=== PATIENT | female | born 1960 | race Caucasian/White ===

== ENCOUNTER 2020-09-21 11:09 | Inpatient (IN) ==
[2020-09-21] MEDS ORDERED: ASPIRIN CHEW 324 MG PO STA (11:58)
[2020-09-21] MEDS ORDERED: NITROGLYCERIN 2% OINTMENT 30GM TUBE EXT STA (11:58)
[2020-09-21] MEDS ORDERED: FAMOTIDINE 20MG/5ML IV PUSH IV STA (12:01)
[2020-09-21 12:22] LABS: Basophils # (auto) 0.05 K/uL (0-0.2); Basophils % (auto) 0.5 %; Eosinophils # (auto) 0.12 K/uL (0-0.5); Eosinophils % (auto) 1.3 %; Hematocrit (blood only) 44.6 % (37-47); Hemoglobin 15.2 g/dL (12.0-16.0); Immature Granulocytes % (auto) 1.1 %; Lymphocytes # (auto) 2.56 K/uL (1.2-3.4); Lymphocytes % (auto) 27.4 %; Mean Corpuscular Hemoglobin 30.2 pg (25-34); Mean Corpuscular Hgb Conc 34.1 g/dL (32-36); Mean Corpuscular Volume 88.5 fL (80-100); Mean Platelet Volume 10.5 fL (7.4-10.4); Monocytes % (auto) 6.4 %; Neutrophils # (auto) 5.92 K/uL (1.4-6.5); Neutrophils % (auto) 63.3 %; Platelet Count 408 K/uL (130-400); RDW Coefficient of Variation 13.9 % (11.5-14.5); RDW Standard Deviation 45.2 fL (36.4-46.3); Red Blood Count 5.04 M/uL (4.2-5.4); White Blood Count 9.35 K/uL (4.8-10.8)
--- NOTE | 2020-09-21 12:24 | XRay Report ---
XR chest 1V portable CLINICAL HISTORY: Atypical chest pain. COMPARISON STUDY: No previous studies for comparison. FINDINGS: Lung volumes are normal. Lungs are clear. There is no pneumothorax or pleural effusion. Car diac size is normal. Mediastinal contours are normal. There is no evidence for pulmonary edema. There is evidence for a probable distal right clavicular resection. IMPRESSION: No acute cardiopulmonary findings. ACT 112: Negative or not required by law. Electronically signed by: Himanshu Jacobo M.D. 09/21/2020 12:23 PM
[2020-09-21 13:00] LABS: Albumin Level 3.4 gm/dl (3.4-5.0); BUN Creatinine Ratio 18.2 (10-20); Creatinine Clr Calc Pharmacy 76.2 ml/min; Est GFR (African American) 103.5; Est GFR (Non-African American) 89.3; Potassium 3.9 mmol/L (3.5-5.1)
[2020-09-21 13:08] LABS: Albumin Globulin Ratio 0.9 (0.9-2); Bilirubin,Total 0.4 mg/dl (0.2-1); Globulin 3.8 gm/dl (2.5-4.0); Total Protein 7.2 gm/dl (6.4-8.2); Troponin I 0.321 ng/ml (0-0.045)
[2020-09-21] MEDS ORDERED: Heparin IV Low Dose WITH Bolus IV STA (13:09)
[2020-09-21] MEDS ORDERED: HEPARIN SODIUM/DEXTROSE 25,000 UNITS/500 ML BAG IV SCH (13:15)
[2020-09-21] MEDS ORDERED: HEPARIN SOD (PORCINE) 1000 UNIT/ML 10 ML VIAL ONE (13:22)
[2020-09-21] MEDS ORDERED: Heparin BOLUS **ED Use Only IV STA (13:27)
--- NOTE | 2020-09-21 14:35 | Electrocardiogram Report ---
Test Reason : Blood Pressure : / mmHG Vent. Rate : 061 BPM Atrial Rate : 061 BPM P-R Int : 146 ms QRS Dur : 080 ms QT Int : 430 ms P-R-T Axes : 061 -58 199 degrees QTc Int : 432 ms Poor data quality, interpretation may be adversely affected Sinus rhythm with occasional Premature ventricular complexes Left anterior fascicular block Abnormal ECG No previous ECGs available Confirmed by Lucian Desai ([id number]) on 09/21/2020 2:35:15 PM Referred By: REFERRED SELF Confirmed By:Lucian Desai
[2020-09-21] MEDS ORDERED: NITROGLYCERIN/D5W 100MCG/ML 20ML SYR ONE (14:53)
[2020-09-21] MEDS ORDERED: fentaNYL citrate 100 MCG/2 ML VIAL ONE ×2 (14:53→17:22)
[2020-09-21] MEDS ORDERED: HEPARIN (PORCINE) 1000 UNIT/ML 10 ML (CATH LAB USE ONLY) ONE (14:53)
[2020-09-21] MEDS ORDERED: MIDAZOLAM HCL 1 MG/ML 2ML VIAL ONE ×2 (14:53→15:53)
[2020-09-21] MEDS ORDERED: niCARdipine HCL INJ 2.5 MG/ML 10 ML AMP ONE (14:53)
--- NOTE | 2020-09-21 15:13 | History & Physical Report ---
Date of Service September 21, 2020 Assessment & Plan (1) NSTEMI, initial episode of care: Mrs. Horner is a 60-year-old female with a history of Tobacco Use x 42 years (up to 2 ppd, now smokes 1/2 ppd), presumed Dyslipidemia, and Elevated BP (without diagnosis of hypertension) who presents acutely to [facility] ER today with Unstable Angina Pectoris, Ischemic EKG Changes, and an Elevated Troponin I Level -- which likely represent an NSTEMI. Patient was in her usual state of health when she had the onset angina -- it occurred on Sunday, she was moving [employer] -- and after she moved 7 or 8 hay mely she had severe chest burning from her lower anterior chest up into the suprasternal notch which caused her to stop the activity. She sat down and rested, and the discomfort lasted for about 5-10 minutes. This occurred again on Sunday when she was shoveling out her horse stalls. Again, she sat down and rested and the pain lasted for 5-10 minutes. Overnight on Sunday night into Sunday morning while sleeping she had another episode of burning chest pain that woke her from sleep and lasted about 10 minutes. This morning she had some mild chest discomfort while taking a shower and when trying to get her [employer] to come in out of the snow. She has not had any prolonged episodes of burning chest discomfort, and she only had that 1 episode that occurred at rest. At the present time, she denies any further chest discomfort. She has a heparin drip running, and topical nitroglycerin in place. She has also taken Aspirin 325 mg in the ER. Recommend the following: -- Cardiac Catheterization/Coronary Angiography +/- PCI. -- Admit to a Telemetry bed following cardiac catheterization. -- Begin Metoprolol Succinate ER 50 mg daily. -- Begin Atorvastatin 80 mg daily. -- Begin Aspirin 81 mg daily. -- Begin Brilinta 90 mg b.i.d.. -- Consider starting an ACEI or ARB if BP allows. -- Obtain Echocardiogram. -- Mediterranean Diet. -- Strongly encouraged smoking cessation. -- She declines a nicotine patch. (2) CAD (coronary artery disease): -- Cardiac Catheterization/Coronary Angiography is being done in the near future. -- Dr. Holloway met with the patient, discussed various options, and acquired informed consent to proceed with cardiac catheterization. -- Management as outlined above. (3) Dyslipidemia: -- Begin high intensity statin therapy. -- Atorvastatin 80 mg daily. -- Recommend a Mediterranean diet. (4) Elevated BP without diagnosis of hypertension: -- Monitor BP throughout hospitalization. -- Begin Metoprolol Succinate ER 50 mg daily. -- Consider starting an ACEI or ARB. -- Stop smoking. (5) Tobacco use: -- Strongly encouraged smoking cessation. History of Present Illness Chief Complaint: -- Unstable Angina /NSTEMI. -- Burning Chest Pain. Primary Care Provider: Yanelis Urias Mrs. Horner is a 60-year-old female with a history of Tobacco Use x 42 years (up to 2 ppd, now smokes 1/2 ppd), presumed Dyslipidemia, and Elevated BP (without diagnosis of hypertension) who presents acutely to [facility] today complaining of Burning Chest Pain which goes from her lower anterior chest up to her suprasternal notch, Ischemic EKG Changes, and an Elevated Troponin I Level. Patient was in her usual state of health. On Sunday, she was moving hay mely -- and after she moved 7 or 8 hay mely she had severe chest burning as described above, she sat down and rested, and the discomfort lasted for about 5- 10 minutes. This occurred again on Sunday when she was shoveling out her horse stalls. Again, she sat down and rested and the pain lasted for 5-10 minutes. Over night on Sunday night into Sunday morning while sleeping she had another episode of burning chest pain that woke her from sleep and lasted about 10 minutes. This morning she had some mild chest discomfort while taking a shower and when trying to get her [employer] to come in out of the snow. She has not had any prolonged episodes of burning chest discomfort, and she only had that 1 episode that occurred at rest. She denies any radiation of the discomfort. She denies any associated symptoms. She specifically denies any associated nausea, vomiting, diaphoresis, or dyspnea. She does get hot flashes related to menopause, but these are unassociated with this chest discomfort. Allergies Allergy/AdvReac Type Severity Reaction Status Date / Time bee venom protein (honey bee) Allergy Unknown Unknown Unverified 09/21/20 13:00 codeine Allergy Unknown Unknown Unverified 09/21/20 13:00 Home Medications Medication Instructions Recorded Confirmed Type aspirin-caffeine [Benny Back and 1 tab PO UD 09/21/20 09/21/20 History Body] Past Med/Surg History Medical History (Updated 09/21/20 @ 18:08 by Nicole Delong MD) COPD (chronic obstructive pulmonary disease) Family History (Updated 09/21/20 @ 15:05 by Christopher Miguel PA-C) Other Dyslipidemia FH: CABG (coronary artery bypass surgery) Heart disease Hypertension Social History (Updated 09/21/20 @ 15:07 by Christopher Miguel PA-C) Smoking Status: Current every day smoker Tobacco Type: Cigarettes Age Started Using Tobacco: 18; Years Smoked: 42; Cigarettes Per Day: 10; Hx Alcohol Use: No Hx Substance Use: No Preferred Language: Amharic Communication Ability: Effective Visual Impairment: No Limitations Hearing Ability: Normal Supervisor [place] House Required: No Beliefs That Will Affect Care: None marital status: Current Living Situation: Spouse current occupational status: employed current occupation: Owns a [employer] Other Information That Helps Us Care for You: No Feels Safe at Home: Yes Safety Concerns: Feels Safe At This Time caffeine: Yes Physical Activity Frequency: Daily 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, manual labor Assistive Devices: Glasses Review of Systems Review of Systems: All systems reviewed & are unremarkable except as noted in Subjective Physical Exam Physical Exam: GENERAL: Patient in no acute distress. HEENT: Head is atraumatic, normocephalic. EOM's intact. Facies symmetric. No perioral cyanosis. NECK: No JVD. JVP is at the level of the clavicle sitting upright. Carotid upstrokes are + 2 bilaterally. No bruits are noted. CHEST/LUNGS: Harsh breath sounds, otherwise clear. No wheezes, rales, or crackles. CVS: S1 and S2 are regular without obvious murmurs, gallops, or rubs. PMI is nondisplaced. No lifts, heaves, or thrills. No abdominal aortic or renal bruits. ABDOMINAL EXAM: Bowel sounds are present. No masses, organomegaly, or tenderness. EXTREMITIES: No clubbing or cyanosis. No edema. Intact posterior tibial and radial pulses bilaterally. Milton's test of the right wrist is positive for both radial and ulnar arterial reflow. NEUROLOGIC EXAM: Patient is awake, alert, and oriented. Pleasant and cooperative. Answers questions appropriately. Speech is clear. Normal movement in all 4 extremities. Gait pattern was not assessed. EKG 09/21/2020: -- NSR at 61 bpm with LAFB. -- ST and marked T wave abnormality consider anterolateral ischemia. -- No prior tracings available for comparison. MILIEU COORDINATOR: -- NSR. CARDIAC CATHETERIZATION is going to happen in the very near future. Results & Data Results & Data ([facility]) Vital Signs (Past 12 Hours) Vital Signs Temp Pulse Resp BP Pulse Ox 09/21/20 13:00 56 L 17 144/86 H 97 09/21/20 12:51 65 15 169/81 H 97 09/21/20 12:11 59 L 12 173/90 H 97 09/21/20 11:40 70 19 172/98 H 100 09/21/20 11:19 36.7 C 62 16 185/88 H 100 Laboratory Results Laboratory Results - last 24 hr 09/21/20 09/21/20 09/21/20 11:25 12:24 14:10 WBC 9.35 RBC 5.04 Hgb 15.2 Hct 44.6 MCV 88.5 MCH 30.2 MCHC 34.1 RDW Std Deviation 45.2 RDW Coeff of Manuel 13.9 Plt Count 408 H MPV 10.5 H Immature Gran % (Auto) 1.1 Neut % (Auto) 63.3 Lymph % (Auto) 27.4 [place] % (Auto) 6.4 Eos % (Auto) 1.3 Baso % (Auto) 0.5 Neut # (Auto) 5.92 Lymph # (Auto) 2.56 [place] # (Auto) 0.60 H Eos # (Auto) 0.12 Baso # (Auto) 0.05 Immature Gran # (Auto) 0.10 H Sodium 140 Potassium 3.9 Chloride 110 H Carbon Dioxide 23 Anion Gap 7.0 BUN 13 Creatinine 0.74 Est Cr Clr Drug Dosing 76.2 Est GFR ( Amer) 103.5 Est GFR (Non-Af Amer) 89.3 BUN/Creatinine Ratio 18.2 Glucose 93 Calcium 9.0 Total Bilirubin 0.4 AST 10 L ALT 20 Alkaline Phosphatase 72 Troponin I 0.321 H* Total Protein 7.2 Albumin 3.4 Globulin 3.8 Albumin/Globulin Ratio 0.9 Lipase 107 COVID-19 [facility] SARS-CoV-2, RNA, NAAT 09/21/20 14:10 WBC RBC Hgb Hct MCV MCH MCHC RDW Std Deviation RDW Coeff of Manuel Plt Count MPV Immature Gran % (Auto) Neut % (Auto) Lymph % (Auto) [place] % (Auto) Eos % (Auto) Baso % (Auto) Neut # (Auto) Lymph # (Auto) [place] # (Auto) Eos # (Auto) Baso # (Auto) Immature Gran # (Auto) Sodium Potassium Chloride Carbon Dioxide Anion Gap BUN Creatinine Est Cr Clr Drug Dosing Est GFR ( Amer) Est GFR (Non-Af Amer) BUN/Creatinine Ratio Glucose Calcium Total Bilirubin AST ALT Alkaline Phosphatase Troponin I Total Protein Albumin Globulin Albumin/Globulin Ratio Lipase COVID-19 Eval Order SARS-CoV-2, RNA, NAAT NEGATIVE Diagnostic Findings CXR 09/21/2020: -- Lung volumes are normal. Lungs are clear. -- There is no pneumothorax or pleural effusion. -- Cardiac size is normal. Mediastinal contours are normal. -- There is no evidence for pulmonary edema. -- There is evidence for a probable distal right clavicular resection. IMPRESSION: No acute cardiopulmonary findings. Medications Administered Heparin Sodium/Dextrose (Heparin Sodium/Dextrose) 25,000 units in 500 mls @ 14 mls/hr IV .Q24H [facility]; Protocol Stop: 10/21/20 13:14 Last Admin: 09/21/20 13:28 Dose: 700 units/hr, 14 mls/hr Documented by: [id number] Cosigned by: [id number] Discontinued Medications Aspirin (Aspirin Chew 324 Mg) 324 mg PO NOW STA Stop: 09/21/20 11:59 Last Admin: 09/21/20 12:12 Dose: Not Given Documented by: [id number] Famotidine (Famotidine 20mg/5ml Iv Push) 20 mg IV ONE STA Stop: 09/21/20 12:02 Last Admin: 09/21/20 12:10 Dose: 20 mg Documented by: [id number] Heparin Sodium (Porcine) (Heparin Sod (Porcine) 1000 Unit/Ml 10 Ml Vial) Confirm Administered Dose 10,000 units .ROUTE .STK-MED ONE Stop: 09/21/20 13:23 Last Admin: 09/21/20 13:28 Dose: 3,000 units Documented by: [id number] Cosigned by: [id number] Heparin Sodium (Porcine) (Heparin Bolus Ed Use Only) 3,000 units IV NOW STA Stop: 09/21/20 13:28 Last Admin: 09/21/20 13:30 Dose: Not Given Documented by: [id number] Nitroglycerin (Nitroglycerin 2% Ointment 30gm Tube) 1 inch EXT NOW STA Stop: 09/21/20 11:59 Last Admin: 09/21/20 12:10 Dose: 1 inch Documented by: [id number] ECG Indication: chest pain Rate (beats per minute): 61 Rhythm: normal sinus Findings: + ST depression (V3 V4) and + T-wave inversion (Deep V3-V5) Comparison ECG Date: no prior available Code Status & VTE Plan Code Status Full Code VTE Prophylaxis Plan VTE Prophylaxis will be ordered: Yes Supervising Physician Co-Signing Physician Notes I personally saw and examined the patient. I verified all wright points and agree with MARI Miguel with the following exceptions and/or additions: 60-year-old female presents to the emergency room with chest pain. No prior significant medical history. Significant smoking history approximately 80 pack years. Initial chest pain on exertion 3 days ago. Increasing in frequency and severity and occurring at rest for the past 2 days. Currently chest pain-free in the emergency room after nitroglycerin paste, aspirin given and heparin drip started. O/E HS1+2, no murmurs, Chest CTAB, Abdo SNT, BS +ve A/P NSTEMI - elevated troponin, EKG with T wave inversions anterolaterally. aspirin and heparin started in ER. Continue on nitro patch pending cardiac cath planned for later today. Dr. Holloway (cardiology) at bedside when seen. Hypertension - metoprolol tartrate rather than succinate as stated above. Likely need for ACEi post cardiac cath. Tobacco use -declines nicotine replacement products at this time. Smoking sherrill sation PG Care Time/CCT Total # of Minutes Spent Total Time Spent with Patient: Total time spent is greater than 50% in coordination of care (as documented) at patient's floor/unit and/or counseling patient:50 Coding Level of Care Code 99253 Initial Inpt Care Lvl 3 Diagnoses NSTEMI, initial episode of care I21.4 CAD (coronary artery disease) I25.10 Dyslipidemia E78.5 Elevated BP without diagnosis of hypertension R03.0 Tobacco use Z72.0 Time Spent (min) 75
[2020-09-21] MEDS ORDERED: hydrALAZINE HCL 20 MG/ML VIAL ONE (16:47)
[2020-09-21] MEDS ORDERED: TICAGRELOR 90 MG TAB PO ONE (16:50)
[2020-09-21] MEDS ORDERED: NITROGLYCERIN SL 0.4 MG/TAB TAB ONE (17:22)
--- NOTE | 2020-09-21 17:26 | Post Anesthesia Assessment ---
Date of Service September 21, 2020 Post Sedation Assessment Vital Signs Temp Pulse Resp BP Pulse Ox 09/21/20 13:00 56 L 17 144/86 H 97 09/21/20 12:51 65 15 169/81 H 97 09/21/20 12:11 59 L 12 173/90 H 97 09/21/20 11:40 70 19 172/98 H 100 09/21/20 11:19 98.1 F 62 16 185/88 H 100 Recovery Score Activity: Moves 4 extremities Respiration: Deep Breath/Cough Circulation: +/-20% PreAnes Value Consciousness: Fully Awake Oxygen Saturation: O2 needed for >90% Discharge Sedation Level of Care: Fast Track Phase II Post Sedation Plan On clinical assessment, the patient appears to have tolerated the sedation without complications. Patient is recovering as anticipated. Patient will continue to be monitored by nursing and may be discharged when sedation discharge criteria are met per below protocol. Upon Completions of procedure up to 15 minutes continue every 5 minute vital signs and the P.A.R. score; then discharge to a Phase I or Fast Track to Phase II per the following guidelines: * Discharge Patient to appropriate Phase II area if PAR is 8 or greater or return to pre- procedure baseline. The post - procedure orders will be as directed. * If PAR score is less than 8 or not return to pre-procedure baseline then patient will follow Phase I monitoring till PAR is reached for Phase II. The Phase I may be done in procedure room or may call to secure a Phase I area. * If naloxone or flumazenil are used for reversal, hold in Phase I for continued monitoring from when last reversal dose was given for a minimum of 60 minutes or longer pending the nurse and/or physician discretion of patient condition before discharge to Phase II. Please call the Sedation Physician to re-evaluate and complete post-note for discharge to Phase II area. Do NOT discharge from procedure sedation or Phase 1 until post- sedation evaluation note is complete by procedure /sedation MD Sedation Discharge Instructions to be given to the patient at discharge to home.
--- NOTE | 2020-09-21 17:41 | Cardiac Catheterization ---
[facility] Data: Fiberglass Quality Technician Cardiac Status Clinical evaluation leading to the procedure CAD Presenation: Non STEMI Anginal Classification: CCS IV Heart Failure: No Cardiogenic Shock within 24 Hours: No Cardiac Arrest within 24 Hours: No Imaging Studies Past 6 Months: No Stress Studies Past 6 Months: No Diagnostic Physicians Name: Efren Holloway MD Status: Elective Closure Device Percutaneous Entry Location: Radial Closure Device: Radial Band Recommendations: PCI without planned CABG PCI Indication: PCI for high risk Non-SANA Lesion Segment Name: Mid LAD Culprit Artery: Yes Stenosis Prior to Rx (%): 90 Chronic Total Occlusion: No IVUS: Yes FFR: No Pre-Procedure ABDIAS Flow: 3 Previously Treated Lesion: No Lesion Complexity: High/C Lesion Length (mm): 25 Thrombus Present: Yes Bifurcation Lesion: Yes Guidewire Across Lesion: Stenosis Post-Procedure (%): 0 Post-Procedure ABDIAS Flow: 3 Devices(s) Deployed: Yes Yes Intraprocedure Events Significant Disection: No Perforation: No Cardiac Cath Procedure Full Procedure Date September 21, 2020 Pre-Procedure Diagnosis Pre-Procedure Diagnosis: Non STEMI AUC Score AUC Score: 8 Post-Procedure Diagnosis Post-Procedure Diagnosis: Severe CAD, Successful PCI and Normal Intracardiac Pressures Procedure(s) Performed Procedure(s) Performed: Coronary Angiography, Left Heart Cath, Drug Eluting Stent and IVUS Currency Exchange Specialist Efren Holloway MD Field Assembly Supervisor(s) Sj Estimated Blood Loss Estimated Blood Loss: 15 Medication(s) Medication(s): Fentanyl, Heparin, Lidocaine 1%, Nicardipine, Nitroglycerin and Versed Medication(s): Ticagrelor Summary of Findings Indication: STEMI/Heart Alert Access: 6 Fr right radial artery Catheters: DENAE AndresU 3.5 guide Findings: LM -large caliber, no significant disease LAD -large caliber, proximal luminal irregularities, diffuse mid segment disease up to 80 to 90% extending across the bifurcation with small caliber second diagonal. D2 with 90% ostial stenosis. 30% latemid disease. Distal vessel without significant disease and wraps around apex. Circumflex -medium caliber, 40% mid segment disease. 30 to 40% diffuse distal disease extending into proximal OM 2. RCA -large caliber, dominant, 20 to 30% mid segment disease. Distal luminal regularities. 40% proximal right PDA. Large right PLB without significant disease. LVEDP -16 -- PCI -- Antithrombotic therapy: Heparin, ticagrelor Procedure: Left main cannulated with EBU 3.5 guide BMW wire passed across lesion into distal vessel Prowater wire placed into second diagonal [place] IVUS catheter placed to mid LAD, unable to pass across most severe stenosis prior to D2. On pullback noted to have severe moderately calcified concentric plaque extending back proximal to small first septal/D1. Left main without significant disease. Mid LAD lesion predilated with 2.5 compliant balloon Ostium of D2 gently dilated with 2.5 balloon Dilated lesion stented with 3.0 x 30 mm [place] drug-eluting stent Post stent deployment noted to have residual latemid LAD disease after distal aspect of stent. IVUS confirmed eccentric calcified plaque. Second ZULEIMA (2.5 x 12 mm Mack) placed to late mid LAD, overlapping with distal aspect of initial stent. Stent post-dilated with 3.5 noncompliant balloon Noted to have severe ostial stenosis in D2 with ABDIAS II flow D2 rewired with whisper wire Ostium of D2 dilated with 2.0 balloon Mid LAD postdilated again with 3.5 balloon to high atmospheres IC vasodilators administered for spasm Post procedure ABDIAS 3 flow, stent well expanded with minimal residual stenosis. Residual D2 ostial stenosis but ABDIAS-3 flow. Arterial Closure: TR band Summary: 1. Acute 90% mid LAD disease involving bifurcation with small D2. D2 90% ostial stenosis. 2. Mild to moderate non-culprit coronary artery disease -30 to 40% mid, distal circumflex disease extending into proximal OM 2 40% proximal right PDA 3. Normal intracardiac filling pressure 4. Successful PCI of proximal to mid LAD with 2 overlapping drug-eluting stents (3.0 x 30 mm 2.5 x 12 [place]; postdilated with 3.5 NC). -PTCA of ostium of D2 through stent struts with 2.0 balloon Recommendations: Admit to PCU for continued monitoring Loaded with ticagrelor 180 mg in Fiberglass Quality Technician Continue dual-antiplatelet therapy for at least 1 year. Trend troponins until peak, Check Echo Uptitrate beta-michelle/YOSSI as BP allows Smoking cessation Consult cardiac Rehab Hemodynamics Rest Ao:: 150/71/103 Final Ao: 125/64/89 LV: 151/16 Recommendations Recommendations: PCI without planned CABG Specimens Specimens: None Radiation Exposure (mGy) 1224 Contrast (mls) 120 Fluids (cc crystalloids) Fluids (cc crystalloids): 200 Drains Drains: None Anesthesia Moderate Procedural Complication(s) None Disposition PCU I attest to the content of the Intraoperative Record and any orders documented therein. Any exceptions are noted below. [facility] Card [facility] Procedure Codes Cardiac Catheterization Procedure 1: Cardiovascular Cath Procedures: 49839 Coronaries and LHC (+/-LV) Therapeutic Services & Ancillary Proc Procedure 1: Cardiovascular Tx and Anc Procedures: 98976 IV Ultrasound (Coronary or Graft) Moderate Sedation Procedure 1: Sedation/Anesthesia: 55169 Mod Sedation by the same physician;Init15 Min Child Age 5 & Up Procedure 2: Sedation/Anesthesia: 46792 Mod Sedation by the same physician; Ea [id number] Minutes Stenting Procedure 1: Cardiovascular Stent Procedures: 55469 Perc transcatheter placement of intracoronary stent(s), with ang PG Care Time/CCT Total # of Minutes Spent Total Time Spent with Patient: Total time spent is greater than 50% in coordination of care (as documented) at patient's floor/unit and/or counseling patient:
[2020-09-21] MEDS ORDERED: MoRPHine SULFATE 2 MG/ML CARP IV PRN ×2 (17:54→18:05)
[2020-09-21] MEDS ORDERED: ONDANSETRON INJ 2 MG/ML 2 ML VIAL IV PRN ×2 (17:54→18:05)
[2020-09-21] MEDS ORDERED: NITROGLYCERIN SL 0.4 MG/TAB TAB SL PRN ×2 (17:54→18:05)
[2020-09-21] MEDS ORDERED: lisinopril 5 MG TAB PO SCH (18:00)
[2020-09-21] MEDS ORDERED: METOPROLOL SUCC 50MG EXT REL TAB PO SCH (18:05)
[2020-09-21] MEDS ORDERED: ACETAMINOPHEN 325 MG TAB PO PRN (18:05)
[2020-09-21] MEDS ORDERED: MAGNESIUM HYDROXIDE SUSP 30 ML UDC PO PRN (18:05)
[2020-09-21] MEDS ORDERED: ALUMINUM/MAGNESIUM SUSP 30 ML UDC PO PRN (18:05)
[2020-09-21] MEDS ORDERED: ZOLPIDEM TARTRATE 5 MG TAB PO PRN (18:05)
[2020-09-21] MEDS ORDERED: POLYETHYLENE (MIRALAX) 17 GM PACK PO PRN (18:05)
--- NOTE | 2020-09-21 18:08 | Emergency Department Note ---
Impression & Plan NSTEMI, initial episode of care, Tobacco use ED Provider Note NAME: MANDA RAO AGE: 60 SEX: F ARRIVES VIA: Walk-In INFORMANT: Patient ED PROVIDER(S): Nicole Delong MD CHIEF COMPLAINT: CP with exertion PLAN: Disposition: Inpatient Condition: Guarded Referral: Interventional cards, hospitalist MEDICAL DECISION MAKING: This pt was evaluated and appeared to be in no distress. IV access was obtained and lab work was drawn. Pt was placed on the ekg monitor and noted to be in a NSR at 70 bpm. PO ASA was administered and topical NTG was applied. EKG reveals deep T wave inversions in the anterior lateral leads. Trop was noted to be elevated at 0.321. Dr. Holloway of interventional cardiology was consulted and pt was started on a heparin drip. Hospitalist service was consulted for admission. She was aware of plan and agrees. Triage Nursing notes reviewed. Vital Signs: reviewed and remarkable for no significant abnormalities. Differential diagnosis: Cardiac ischemia, aortic dissection, pulmonary embolism, pneumothorax, p neumonia, pericarditis, myocarditis, esophageal rupture, GERD, cholecystitis, pancreatitis, musculoskeletal, as well as other pathologies. ER treatment provided: po ASA IV heparin drip top NTG Diagnostics interpreted by me: ECG: NSR 62 with deep T wave inversion, non specific ST abnl, QTc normal at 430, no PVC, no PAC. Cardiac Monitoring: An order for cardiac monitoring was placed and pt was noted to be in a NSR at 70 bpm. Laboratory studies: See below Imaging studies: XR chest 1V portable CLINICAL HISTORY: Atypical chest pain. COMPARISON STUDY: No previous studies for comparison. FINDINGS: Lung volumes are normal. Lungs are clear. There is no pneumothorax or pleural effusion. Cardiac size is normal. Mediastinal contours are normal. There is no evidence for pulmonary edema. There is evidence for a probable distal right clavicular resection. IMPRESSION: No acute cardiopulmonary findings. ACT 112: Negative or not required by law. Electronically signed by: Himanshu Jacobo M.D. 09/21/2020 12:23 PM Dictated: 09/21/202Transcribed: 09/21/201221 Consultation(s): Intervential cards Hospitalist HPI: 60/F arrives for evaluation of CP, radiating into the jaw. Pt was shoveling horse manure 2 days ago when she developed the discomfort. She sat and rested for a few minutes and the pain resolved. Again the next day the pain reoccurred. Her friend referred her "to be checked out." Pt states she has mild pain at this point. Denies COVID exposure, fever, new cough. ROS: See above HPI for pertinent positives & negatives. A total of 10 systems reviewed and were otherwise negative. PAST MEDICAL HISTORY:See Below PAST SURGICAL HISTORY:See Below FAMILY HISTORY:See Below SOCIAL HISTORY:See Below HOME MEDICATIONS:See Below ALLERGIES:See Below VITALS:See Below PHYSICAL EXAMINATION: Vital signs reviewed. General: Well-appearing 60 female, in no significant distress. HEENT: No scleral icterus, PERRLA, neck supple. Atraumatic. Cardiovascular: Regular rate and rhythm, no extra sounds. Pulmonary: Clear to auscultation bilaterally, normal work of breathing. Abdomen: Soft, nontender, nondistended, positive bowel sounds. Musculoskeletal: Atraumatic, no peripheral edema. Neurologic: Patient awake alert and oriented x 3 Skin: Warm, dry, no rash The high probability of a clinically significant, sudden or life threatening deterioration required my full and direct attention, intervention and personal management. The aggregate critical care time was 40 minutes. This time is in addition to time spent performing reported procedures but includes the following: [x] Data Review and interpretation [x] Patient assessment and monitoring of vital signs [x] Documentation [x] Medication orders and management Nicole Delong MD Past Med/Surg History Medical History COPD (chronic obstructive pulmonary disease) Tobacco use Family History Other Dyslipidemia FH: CABG (coronary artery bypass surgery) Heart disease Hypertension Social History Smoking Status: Current every day smoker Tobacco Type: Cigarettes Age Started Using Tobacco: 18; Years Smoked: 42; Cigarettes Per Day: 10; Hx Alcohol Use: No Hx Substance Use: No Preferred Language: Montenegrin Communication Ability: Effective Visual Impairment: No Limitations Hearing Ability: Normal Supervisor Sleeping Bag Department Required: No Beliefs That Will Affect Care: None marital status: Current Living Situation: Spouse current occupational status: employed current occupation: Owns a [employer] Feels Safe at Home: Yes caffeine: Yes Physical Activity Frequency: Daily 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, manual labor Assistive Devices: Glasses Allergies Allergies Allergy/AdvReac Type Severity Reaction Status Date / Time bee venom protein (honey bee) Allergy Unknown Unknown Unverified 09/21/20 13:00 codeine Allergy Unknown Unknown Unverified 09/21/20 13:00 Home Meds Previous Rx's Medication Instructions Recorded aspirin 81 mg PO QAM #30 tab 09/23/20 atorvastatin 80 mg PO QAM #30 tab 09/23/20 colchicine [Colcrys] 0.6 mg PO BID #60 tab 09/23/20 lisinopril 10 mg PO QAM #30 tab 09/23/20 metoprolol succinate [Toprol XL] 25 mg PO DAILY #30 tab 09/23/20 nitroglycerin [Nitrostat] 0.4 mg SUBLINGUAL PRN PRN #20 tab 09/23/20 pantoprazole 40 mg PO QAM #30 tab 09/23/20 ticagrelor [Brilinta] 90 mg PO BID #60 tab 09/23/20 Results & Data (ED) Vital Signs Vital Signs - 24 hr 09/21/20 11:19 09/21/20 11:40 09/21/20 12:11 Temperature 36.7 C Temperature Source Oral Pulse Rate 62 70 59 L Pulse Rate from SpO2 Sensor 70 60 Respiratory Rate 16 19 12 Blood Pressure 185/88 H 172/98 H 173/90 H Blood Pressure Mean 120 122 117 Pulse Oximetry 100 100 97 Oxygen Delivery Method Room Air Sepsis Recent Fever Within 48 Hours No Sepsis New/Unexplained Change in Mental Status N/A Sepsis Action Taken by Nursing No Action Required 09/21/20 12:51 09/21/20 13:00 Temperature Temperature Source Pulse Rate 65 56 L Pulse Rate from SpO2 Sensor 62 57 L Respiratory Rate 15 17 Blood Pressure 169/81 H 144/86 H Blood Pressure Mean 110 105 Pulse Oximetry 97 97 Oxygen Delivery Method Sepsis Recent Fever Within 48 Hours Sepsis New/Unexplained Change in Mental Status Sepsis Action Taken by Care Home Medications Current Medication List: was personally reviewed by me Laboratory Data Attestation: I reviewed the patient's lab results. Result diagrams: 09/23/20 06:57 09/23/20 06:57 Lab Results 09/21/20 09/21/20 09/21/20 Range/Units 11:25 12:24 14:10 WBC 9.35 (4.8-10.8) K/uL RBC 5.04 (4.2-5.4) M/uL Hgb 15.2 (12.0-16.0) g/dL Hct 44.6 (37-47) % MCV 88.5 (80-100) fL MCH 30.2 (25-34) pg MCHC 34.1 (32-36) g/dL RDW Std Deviation 45.2 (36.4-46.3) fL RDW Coeff of Manuel 13.9 (11.5-14.5) % Plt Count 408 H (130-400) K/uL MPV 10.5 H (7.4-10.4) fL Immature Gran % (Auto) 1.1 % Neut % (Auto) 63.3 % Lymph % (Auto) 27.4 % Cherry % (Auto) 6.4 % Eos % (Auto) 1.3 % Baso % (Auto) 0.5 % Neut # (Auto) 5.92 (1.4-6.5) K/uL Lymph # (Auto) 2.56 (1.2-3.4) K/uL Cherry # (Auto) 0.60 H (0.11-0.59) K/uL Eos # (Auto) 0.12 (0-0.5) K/uL Baso # (Auto) 0.05 (0-0.2) K/uL Immature Gran # (Auto) 0.10 H (0.00-0.02) K/uL Sodium 140 (136-145) mmol/L Potassium 3.9 (3.5-5.1) mmol/L Chloride 110 H (98-107) mmol/L Carbon Dioxide 23 (21-32) mmol/L Anion Gap 7.0 (3-11) BUN 13 (7-18) mg/dl Creatinine 0.74 (0.6-1.2) mg/dl Est Cr Clr Drug Dosing 76.2 ml/min Est GFR ( Amer) 103.5 Est GFR (Non-Af Amer) 89.3 BUN/Creatinine Ratio 18.2 (10-20) Glucose 93 (70-99) mg/dl Calcium 9.0 (8.5-10.1) mg/dl Total Bilirubin 0.4 (0.2-1) mg/dl AST 10 L (15-37) U/L ALT 20 (12-78) U/L Alkaline Phosphatase 72 (45-117) U/L Troponin I 0.321 H* (0-0.045) ng/ml Total Protein 7.2 (6.4-8.2) gm/dl Albumin 3.4 (3.4-5.0) gm/dl Globulin 3.8 (2.5-4.0) gm/dl Albumin/Globulin Ratio 0.9 (0.9-2) Lipase 107 (73-393) U/L COVID-19 Eval [facility] SARS-CoV-2, RNA, NAAT (NEGATIVE) 09/21/20 Range/Units 14:10 WBC (4.8-10.8) K/uL RBC (4.2-5.4) M/uL Hgb (12.0-16.0) g/dL Hct (37-47) % MCV (80-100) fL MCH (25-34) pg MCHC (32-36) g/dL RDW Std Deviation (36.4-46.3) fL RDW Coeff of Manuel (11.5-14.5) % Plt Count (130-400) K/uL MPV (7.4-10.4) fL Immature Gran % (Auto) % Neut % (Auto) % Lymph % (Auto) % Cherry % (Auto) % Eos % (Auto) % Baso % (Auto) % Neut # (Auto) (1.4-6.5) K/uL Lymph # (Auto) (1.2-3.4) K/uL Cherry # (Auto) (0.11-0.59) K/uL Eos # (Auto) (0-0.5) K/uL Baso # (Auto) (0-0.2) K/uL Immature Gran # (Auto) (0.00-0.02) K/uL Sodium (136-145) mmol/L Potassium (3.5-5.1) mmol/L Chloride (98-107) mmol/L Carbon Dioxide (21-32) mmol/L Anion Gap (3-11) BUN (7-18) mg/dl Creatinine (0.6-1.2) mg/dl Est Cr Clr Drug Dosing ml/min Est GFR ( Amer) Est GFR (Non-Af Amer) BUN/Creatinine Ratio (10-20) Glucose (70-99) mg/dl Calcium (8.5-10.1) mg/dl Total Bilirubin (0.2-1) mg/dl AST (15-37) U/L ALT (12-78) U/L Alkaline Phosphatase (45-117) U/L Troponin I (0-0.045) ng/ml Total Protein (6.4-8.2) gm/dl Albumin (3.4-5.0) gm/dl Globulin (2.5-4.0) gm/dl Albumin/Globulin Ratio (0.9-2) Lipase (73-393) U/L COVID-19 Eval Order SARS-CoV-2, RNA, NAAT NEGATIVE (NEGATIVE) Administered Medications Discontinued Medications Acetaminophen (Acetaminophen 325 Mg Tab) 650 mg PO Q4H PRN PRN Reason: MILD Pain (Scale 1,2,3) Stop: 10/21/20 17:53 Last Admin: 09/23/20 12:55 Dose: 325 mg Documented by: [id number] Admin: 09/22/20 16:13 Dose: 650 mg Documented by: [id number] Aspirin (Aspirin Chew 324 Mg) 324 mg PO NOW STA Stop: 09/21/20 11:59 Last Admin: 09/21/20 12:12 Dose: Not Given Documented by: [id number] Aspirin (Aspirin 81 Mg Ectab) 81 mg PO [facility] Stop: 10/22/20 08:59 Last Admin: 09/23/20 08:21 Dose: 81 mg Documented by: [id number] Admin: 09/22/20 09:42 Dose: 81 mg Documented by: [id number] Atorvastatin Calcium (Atorvastatin 40 Mg Tab) 80 mg PO [facility] Stop: 10/22/20 08:59 Last Admin: 09/23/20 08:21 Dose: 80 mg Documented by: [id number] Admin: 09/22/20 09:42 Dose: 80 mg Documented by: [id number] Atorvastatin Calcium (Atorvastatin 40 Mg Tab) 80 mg PO ONE ONE Stop: 09/21/20 18:31 Last Admin: 09/21/20 18:39 Dose: 80 mg Documented by: [id number] Calcium Carbonate (Calcium Carbonate 500 Mg Chewable Tab) 1,500 mg PO Q8H PRN PRN Reason: Indigestion Stop: 10/21/20 20:52 Last Admin: 09/22/20 20:55 Dose: 1,500 mg Documented by: [id number] Admin: 09/21/20 22:04 Dose: 1,500 mg Documented by: [id number] Colchicine (Colchicine 0.6 Mg Tab) 0.6 mg PO BID [facility] Stop: 10/23/20 13:29 Last Admin: 09/23/20 18:47 Dose: 0.6 mg Documented by: [id number] Admin: 09/23/20 14:06 Dose: 0.6 mg Documented by: [id number] Famotidine (Famotidine 20mg/5ml Iv Push) 20 mg IV ONE STA Stop: 09/21/20 12:02 Last Admin: 09/21/20 12:10 Dose: 20 mg Documented by: [id number] Famotidine (Famotidine 20 Mg Tab) 20 mg PO NOW ONE Stop: 09/22/20 23:33 Last Admin: 09/22/20 23:45 Dose: 20 mg Documented by: [id number] Fentanyl Citrate (Fentanyl Citrate 100 Mcg/2 Ml Vial) Confirm Administered Dose 100 mcg .ROUTE .STK-MED ONE Stop: 09/21/20 14:54 Last Admin: 09/21/20 17:11 Dose: 100 mcg Documented by: [id number] Fentanyl Citrate (Fentanyl Citrate 100 Mcg/2 Ml Vial) Confirm Administered Dose 100 mcg .ROUTE .STK-MED ONE Stop: 09/21/20 17:23 Last Increment: 09/21/20 17:53 Dose: 25 mcg Documented by: [id number] Fentanyl Citrate (Fentanyl Citrate 100 Mcg/2 Ml Vial) Confirm Administered Dose 100 mcg .ROUTE .STK-MED ONE Stop: 09/23/20 11:43 Last Admin: 09/23/20 12:39 Dose: 50 mcg Documented by: [id number] Heparin Sodium (Porcine) (Heparin Sod (Porcine) 1000 Unit/Ml 10 Ml Vial) Confirm Administered Dose 10,000 units .ROUTE .STK-MED ONE Stop: 09/21/20 13:23 Last Admin: 09/21/20 13:28 Dose: 3,000 units Documented by: [id number] Cosigned by: [id number] Heparin Sodium (Porcine) (Heparin Bolus Ed Use Only) 3,000 units IV NOW STA Stop: 09/21/20 13:28 Last Admin: 09/21/20 13:30 Dose: Not Given Documented by: [id number] Heparin Sodium (Porcine) (Heparin (Porcine) 1000 Unit/Ml 10 Ml (Real Estate Analyst Use Only)) Confirm Administered Dose 10,000 units .ROUTE .STK-MED ONE Stop: 09/21/20 14:54 Last Admin: 09/21/20 17:11 Dose: 5,000 units Documented by: [id number] Heparin Sodium (Porcine) (Heparin (Porcine) 1000 Unit/Ml 10 Ml (Real Estate Analyst Use Only)) Confirm Administered Dose 10,000 units .ROUTE .STK-MED ONE Stop: 09/23/20 11:43 Last Admin: 09/23/20 12:40 Dose: 5,000 units Documented by: [id number] Heparin Sodium/Dextrose (Heparin Iv Low Dose With Bolus) 1 ea IV NOW STA; Protocol Stop: 09/21/20 13:10 Last Admin: 09/21/20 19:07 Dose: Not Given Documented by: [id number] Heparin Sodium/Sodium Chloride (Heparin In Nss Infusion 1000 Unit/500 Ml (2 U/Ml) Bag) Confirm Administered Dose 3,000 units IV .STK-MED ONE Stop: 09/21/20 14:54 Last Admin: 09/21/20 18:18 Dose: Not Given Documented by: [id number] Heparin Sodium/Sodium Chloride (Heparin In Nss Infusion 1000 Unit/500 Ml (2 U/Ml) Bag) Confirm Administered Dose 3,000 units IV .STK-MED ONE Stop: 09/23/20 11:43 Last Admin: 09/23/20 12:40 Dose: 3,000 units Documented by: [id number] Hydralazine HCl (Hydralazine Hcl 20 Mg/Ml Vial) Confirm Administered Dose 20 mg .ROUTE .STK-MED ONE Stop: 09/21/20 16:48 Last Admin: 09/21/20 17:52 Dose: Not Given Documented by: [id number] Hydralazine HCl (Hydralazine Hcl 20 Mg/Ml Vial) 5 mg IV Q4H PRN PRN Reason: Hypertension Stop: 10/21/20 20:52 Last Admin: 09/23/20 01:20 Dose: 5 mg Documented by: [id number] Heparin Sodium/Dextrose (Heparin Sodium/Dextrose) 25,000 units in 500 mls @ 14 mls/hr IV .Q24H [facility]; Protocol Stop: 10/21/20 13:14 Last Titration: 09/21/20 19:08 Dose: 0 units/hr, 0 mls/hr Documented by: [id number] Cosigned by: [id number] Admin: 09/21/20 13:28 Dose: 700 units/hr, 14 mls/hr Documented by: [id number] Cosigned by: [id number] Sodium Chloride (Nss) 500 mls @ 100 mls/hr IV .Q5H [facility] Stop: 09/21/20 23:14 Last Infusion: 09/22/20 00:05 Dose: 0 mls/hr Documented by: [id number] Admin: 09/21/20 18:38 Dose: 100 mls/hr Documented by: [id number] Potassium Chloride (K Alex / Wtr) 10 meq in 100 mls @ 100 mls/hr IV Q1H [facility] Stop: 09/23/20 03:11 Last Admin: 09/23/20 02:21 Dose: Not Given Documented by: [id number] Infusion: 09/23/20 02:21 Dose: 0 mls/hr Documented by: [id number] Infusion: 09/23/20 02:13 Dose: 0 mls/hr Documented by: [id number] Admin: 09/23/20 01:54 Dose: 100 mls/hr Documented by: [id number] Sodium Chloride (Nss 1000ml) 1,000 mls @ 100 mls/hr IV .Q10H [facility] Stop: 09/23/20 17:44 Last Infusion: 09/23/20 18:41 Dose: 0 mls/hr Documented by: [id number] Admin: 09/23/20 13:16 Dose: 100 mls/hr Documented by: [id number] Lisinopril ([facility] 5 Mg Tab) [facility] Stop: 10/21/20 17:59 Last Admin: 09/21/20 18:38 Dose: 5 mg Documented by: [id number] Lisinopril (Lisinopril 5 Mg Tab) 5 mg PO NOW ONE Stop: 09/21/20 21:16 Last Admin: 09/21/20 22:04 Dose: 5 mg Documented by: [id number] Lisinopril (Lisinopril 10 Mg Tab) 10 mg PO QAM [facility] Stop: 10/22/20 08:59 Last Admin: 09/23/20 08:21 Dose: 10 mg Documented by: [id number] Admin: 09/22/20 09:42 Dose: 10 mg Documented by: [id number] Metoprolol Tartrate (Metoprolol Tartrate 25 Mg Tab) 12.5 mg PO BID [facility] Stop: 10/21/20 20:59 Last Admin: 09/23/20 18:47 Dose: 12.5 mg Documented by: [id number] Admin: 09/23/20 08:21 Dose: 12.5 mg Documented by: [id number] Admin: 09/22/20 20:51 Dose: 12.5 mg Documented by: [id number] Admin: 09/22/20 09:42 Dose: 12.5 mg Documented by: [id number] Admin: 09/22/20 00:29 Dose: Not Given Documented by: [id number] Midazolam HCl (Midazolam Hcl 1 Mg/Ml 2ml Vial) Confirm Administered Dose 2 mg .ROUTE .STK-MED ONE Stop: 09/21/20 14:54 Last Admin: 09/21/20 17:12 Dose: 2 mg Documented by: [id number] Midazolam HCl (Midazolam Hcl 1 Mg/Ml 2ml Vial) Confirm Administered Dose 2 mg .ROUTE .STK-MED ONE Stop: 09/21/20 15:54 Last Admin: 09/21/20 17:12 Dose: 2 mg Documented by: [id number] Midazolam HCl (Midazolam Hcl 1 Mg/Ml 2ml Vial) Confirm Administered Dose 2 mg .ROUTE .STK-MED ONE Stop: 09/23/20 11:43 Last Admin: 09/23/20 12:40 Dose: 1 mg Documented by: [id number] Morphine Sulfate (Morphine Sulfate 2 Mg/Ml Carp) 2 mg IV Q2H PRN PRN Reason: Pain Stop: 10/05/20 17:53 Last Admin: 09/23/20 01:58 Dose: 2 mg Documented by: [id number] Nicardipine HCl (Nicardipine Hcl Inj 2.5 Mg/Ml 10 Ml Amp) Confirm Administered Dose 25 mg .ROUTE .STK-MED ONE Stop: 09/21/20 14:54 Last Admin: 09/21/20 17:10 Dose: 0.35 mg Documented by: [id number] Nicardipine HCl (Nicardipine Hcl Inj 2.5 Mg/Ml 10 Ml Amp) Confirm Administered Dose 25 mg .ROUTE .STK-MED ONE Stop: 09/23/20 11:43 Last Admin: 09/23/20 12:39 Dose: 25 mg Documented by: [id number] Nitroglycerin (Nitroglycerin 2% Ointment 30gm Tube) 1 inch EXT NOW [facility] Stop: 09/21/20 11:59 Last Admin: 09/21/20 12:10 Dose: 1 inch Documented by: [id number] Nitroglycerin (Nitroglycerin Sl 0.4 Mg/Tab Tab) Confirm Administered Dose 0.4 mg .ROUTE .STK-MED ONE Stop: 09/21/20 17:23 Last Admin: 09/21/20 17:53 Dose: 0.4 mg Documented by: [id number] Nitroglycerin/Dextrose (Nitroglycerin/D5w 100mcg/Ml 20ml Syr) Confirm Administered Dose 2,000 mcg .ROUTE [facility] Stop: 09/21/20 14:54 Last Admin: 09/21/20 17:11 Dose: 0.15 mcg Documented by: [id number] Nitroglycerin/Dextrose (Nitroglycerin/D5w 100mcg/Ml 20ml Syr) Confirm Administered Dose 2,000 mcg .ROUTE .[facility] Stop: 09/23/20 11:43 Last Admin: 09/23/20 12:40 Dose: 2,000 mcg Documented by: [id number] Pantoprazole Sodium (Pantoprazole 40 Mg Tab) 40 mg PO QAM [facility] Stop: 10/23/20 13:29 Last Admin: 09/23/20 14:06 Dose: 40 mg Documented by: [id number] Potassium Chloride (Potassium Chloride 10 Meq Tabcr) 10 meq PO NOW [facility] Stop: 09/23/20 02:12 Last Admin: 09/23/20 02:34 Dose: 10 meq Documented by: [id number] Potassium Chloride (Potassium Chloride 10 Meq Tabcr) 10 meq PO NOW STA Stop: 09/23/20 02:12 Last Admin: 09/23/20 02:34 Dose: 10 meq Documented by: [id number] Senna/Docusate Sodium (Docusate Sodium/Senna 50/8.6mg Tab) 1 tab PO BID [facility] Stop: 10/23/20 08:59 Last Admin: 09/23/20 13:17 Dose: 1 tab Documented by: [id number] Sennosides (Senna 8.6 Mg Tab) 8.6 mg PO NOW [facility] Stop: 09/22/20 23:33 Last Admin: 09/22/20 23:45 Dose: 8.6 mg Documented by: [id number] Ticagrelor (Ticagrelor 90 Mg Tab) Confirm Administered Dose 180 mg PO .RUST-MED ONE Stop: 09/21/20 16:51 Last Admin: 09/21/20 17:14 Dose: 180 mg Documented by: [id number] Ticagrelor (Ticagrelor 90 Mg Tab) 90 mg PO BID [facility] Stop: 10/21/20 05:59 Last Admin: 09/23/20 18:47 Dose: 90 mg Documented by: [id number] Admin: 09/23/20 08:21 Dose: 90 mg Documented by: [id number] Admin: 09/22/20 20:51 Dose: 90 mg Documented by: [id number] Admin: 09/22/20 09:42 Dose: 90 mg Documented by: [id number] Admin: 09/21/20 18:35 Dose: Not Given Documented by: [id number] Admin: 09/21/20 18:21 Dose: Not Given Documented by: [id number] Discharge Plan Visit Data Chief Complaint: Cardiac Assessment Stated Complaint: HEARTBURN, CHEST DISCOMFORT ED Provider: Nicole Delong Discharge Problem: NSTEMI, initial episode of care, Tobacco use Patient Disposition: Admitted As Inpatient Discharge Instructions Interventions: ED Discharge Assessment Last Done: 09/21/20 15:09
--- NOTE | 2020-09-21 18:13 | Cardiology Consultation ---
Date of Consultation September 21, 2020 Assessment & Plan (1) NSTEMI, initial episode of care: Presentation consistent with high risk NSTEMI and recommend proceeding with urgent cardiac catheterization and possible PCI. No apparent contraindications to procedure. Discussed risks, benefits, alternatives of procedure with patient and she are willing to proceed. Given IV heparin, aspirin in the ED. Further recommendations pending findings of coronary angiography. History of Present Illness Attending Physician: Efren Holloway MD History of Present Illness Mrs. Horner is a very pleasant 60-year-old woman seen in the emergency department with stuttering substernal chest pain, elevated troponin and abnormal ECG consistent with NSTEMI. Patient with no prior cardiac history. She is on no medications at home. She is a long-term smoker. Her father had bypass surgery in his 70s. 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 Had recurrent symptoms 2 days ago while shoveling horse stalls. Recurrent symptoms occurred overnight and had multiple brief episodes of burning chest pain today with minimal exertion such as taking a shower. Pain at its worst was "20 out of 10". Has never had similar symptoms in the past. Symptoms improved in the ED after Nitropatch, aspirin, famotidine. Initial troponin elevated at 0.32 and ECG showed sinus rhythm with anterolateral T wave inversions (deep and V4, V5). Presently with residual 1 or 2 out of 10 chest pain. Allergies Allergy/AdvReac Type Severity Reaction Status Date / Time bee venom protein (honey bee) Allergy Unknown Unknown Unverified 09/21/20 13:00 codeine Allergy Unknown Unknown Unverified 09/21/20 13:00 Home Medications Medication Instructions Recorded Confirmed Type aspirin-caffeine [Benny Back and 1 tab PO UD 09/21/20 09/21/20 History Body] Patient History Medical History (Updated 09/21/20 @ 18:08 by Nicole Delong MD) COPD (chronic obstructive pulmonary disease) Family History (Updated 09/21/20 @ 15:05 by Christopher Miguel PA-C) Other Dyslipidemia FH: CABG (coronary artery bypass surgery) Heart disease Hypertension Social History (Updated 09/21/20 @ 15:07 by Christopher Miguel PA-C) Smoking Status: Current every day smoker Tobacco Type: Cigarettes Age Started Using Tobacco: 18; Years Smoked: 42; Cigarettes Per Day: 10; Hx Alcohol Use: No Hx Substance Use: No Preferred Language: German Communication Ability: Effective Visual Impairment: No Limitations Hearing Ability: Normal Movie Editor Required: No Beliefs That Will Affect Care: None marital status: Current Living Situation: Spouse current occupational status: employed current occupation: Owns a [employer] 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 2+ radial pulses Skin: No rashes or lesions. Neuro: Nonfocal Psych: Alert orient x3, normal affect and mood Results & Data ([facility]) Vital Signs (Past 12 Hours) Vital Signs Temp Pulse Resp BP Pulse Ox 09/21/20 13:00 56 L 17 144/86 H 97 09/21/20 12:51 65 15 169/81 H 97 09/21/20 12:11 59 L 12 173/90 H 97 09/21/20 11:40 70 19 172/98 H 100 09/21/20 11:19 98.1 F 62 16 185/88 H 100 PG Care Time/CCT Total # of Minutes Spent Total Time Spent with Patient: Total time spent is greater than 50% in coordination of care (as documented) at patient's floor/unit and/or counseling patient: Coding Level of Care Code 47664 Inpt Consult Level 4 Diagnoses NSTEMI, initial episode of care I21.4
[2020-09-21] MEDS ORDERED: SODIUM CHLORIDE 0.9% 500 ML IV SCH (18:15)
[2020-09-21] MEDS: TICAGRELOR 90 MG TAB PO SCH ×2 (18:21→18:35)
[2020-09-21] MEDS ORDERED: ATORVASTATIN 40 MG TAB PO ONE (18:30)
[2020-09-21] MEDS: METOPROLOL TARTRATE 25 MG TAB PO SCH (20:30)
[2020-09-21] MEDS ORDERED: hydrALAZINE HCL 20 MG/ML VIAL IV PRN (20:53)
[2020-09-21] MEDS ORDERED: TICAGRELOR 90 MG TAB PO SCH (21:00)
[2020-09-21] MEDS ORDERED: lisinopril 5 MG TAB PO ONE (21:15)
[2020-09-21] MEDS: CALCIUM CARBONATE 500 MG CHEWABLE TAB PO PRN (22:04)
[2020-09-22] MEDS: METOPROLOL TARTRATE 25 MG TAB PO SCH ×3 (00:29→20:51)
[2020-09-22 06:08] LABS: Basophils # (auto) 0.05 K/uL (0-0.2); Basophils % (auto) 0.4 %; Eosinophils # (auto) 0.15 K/uL (0-0.5); Eosinophils % (auto) 1.3 %; Hematocrit (blood only) 41.8 % (37-47); Hemoglobin 13.9 g/dL (12.0-16.0); Immature Granulocytes % (auto) 0.9 %; Lymphocytes # (auto) 2.58 K/uL (1.2-3.4); Lymphocytes % (auto) 22.8 %; Mean Corpuscular Hemoglobin 29.2 pg (25-34); Mean Corpuscular Hgb Conc 33.3 g/dL (32-36); Mean Corpuscular Volume 87.8 fL (80-100); Monocytes # (auto) 0.91 K/uL (0.11-0.59); Neutrophils # (auto) 7.53 K/uL (1.4-6.5); Neutrophils % (auto) 66.6 %; Platelet Count 381 K/uL (130-400); RDW Coefficient of Variation 13.8 % (11.5-14.5); RDW Standard Deviation 44.4 fL (36.4-46.3); Red Blood Count 4.76 M/uL (4.2-5.4); White Blood Count 11.32 K/uL (4.8-10.8)
[2020-09-22 06:40] LABS: BUN Creatinine Ratio 11.3 (10-20); Blood Urea Nitrogen 10 mg/dl (7-18); Calcium 9.5 mg/dl (8.5-10.1); Carbon Dioxide 25 mmol/L (21-32); Chloride 108 mmol/L (98-107); Cholesterol 237 mg/dl (0-200); Creatinine Clr Calc Pharmacy 62.7 ml/min; Est GFR (African American) 81.7; Est GFR (Non-African American) 70.5; Glucose 124 mg/dl (70-99); Potassium 3.8 mmol/L (3.5-5.1); Sodium 139 mmol/L (136-145)
[2020-09-22 06:43] LABS: Chol HDL Ratio 6; HDL Cholesterol 39 mg/dl; LDL Cholesterol Direct 168 mg/dl; Triglycerides 129 mg/dl (0-150); VLDL Cholesterol 26 mg/dl
[2020-09-22 08:28] LABS: Estimated Average Glucose 126 mg/dl
[2020-09-22] MEDS ORDERED: ASPIRIN 81 MG ECTAB PO SCH (09:00)
--- NOTE | 2020-09-22 09:04 | XCELERA ---
[id number]
[2020-09-22] MEDS: ASPIRIN 81 MG ECTAB PO SCH (09:42)
[2020-09-22] MEDS: ATORVASTATIN 40 MG TAB PO SCH (09:42)
[2020-09-22] MEDS: lisinopril 10 MG TAB PO SCH (09:42)
[2020-09-22] MEDS: TICAGRELOR 90 MG TAB PO SCH ×2 (09:42→20:51)
--- NOTE | 2020-09-22 15:07 | Cardiology Progress Note ---
Date of Service September 22, 2020 Assessment & Plan (1) CAD (coronary artery disease): Post PCI with ZULEIMA to LAD 2. Preserved LV function 3. Dyslipidemia 4. Tobacco abuse 5. Sinus bradycardia Reviewed patient ECGs, echocardiogram and telemetry. Suspect residual symptoms, troponin elevation secondary to small septal branches possibly due to residual stenosis in small D2. Very low concern for acute stent thrombosis. Recommend monitoring 1 more night with repeat troponin in the a.m. to assure has peaked Continue DAPT with aspirin, ticagrelor. Okay to give low-dose metoprolol with heart rate in 50s Continue current lisinopril Continue current statin Likely discharge tomorrow morning with cardiology follow-up in 1 week. Admission and Anticipated Discharge Date Admission Date: September 21, 2020 Subjective Early this morning patient had residual chest pain. Repeat ECG showed deep T wave inversions. Echocardiogram showed preserved LV function with no regional wall motion abnormalities. Patient feeling well later this morning, up walking the halls. No additional chest pain. Telemetrysinus bradycardia, no ventricular ectopy Review of Systems Review of Systems: All systems reviewed & are unremarkable except as noted in HPI & below Physical Exam Physical Exam: General: Comfortable, no acute distress HEENT: Sclerae anicteric Lungs: Clear to auscultation bilaterally Cardiac: Regular rate and rhythm, no murmurs Abdomen: Soft, nontender Extremities: Warm, well perfused, no edema. Right radial artery access site with minimal ecchymoses, no hematoma. Distal pulse and sensation intact. Neuro: Nonfocal Psych: Alert orient x3, normal affect and mood Results & Data ([facility]) Vital Signs (Past 12 Hours) Vital Signs Temp Pulse Pulse Resp BP Pulse Ox 09/22/20 12:00 98.4 F 59 L 18 116/75 95 09/22/20 08:00 57 L 09/22/20 07:45 98.6 F 61 18 144/65 H 98 09/22/20 03:53 97.7 F 53 L 16 157/76 H 98 PG Care Time/CCT Total # of Minutes Spent Total Time Spent with Patient: Total time spent is greater than 50% in coordination of care (as documented) at patient's floor/unit and/or counseling patient: Coding Level of Care Code 18026 Subseq Hosp Care Lvl 3 Diagnoses CAD (coronary artery disease) I25.10
--- NOTE | 2020-09-22 15:33 | Hospitalist Progress Note ---
Date of Service September 22, 2020 Assessment & Plan (1) NSTEMI, initial episode of care: Troponin still rising, though slowing significantly. - Continue DAPT: ASA/ticagrelor - Continue beta-michelle and ACEi - Continue statin (2) CAD (coronary artery disease): Cath on 09/21/2020. Two overlapping stents in the mid-LAD. Some mild/moderate non-culprit CAD (30 to 40% mid, distal circumflex disease extending into proximal OM 2 & 40% proximal right PDA). - As above (3) Elevated BP without diagnosis of hypertension: BP today is 115/65. - Meds as above (4) Tobacco use: - Encourage smoking cessation. (5) DVT prophylaxis: SCDs - Low DVT risk per admission calculator Admission and Anticipated Discharge Date Admission Date: September 21, 2020 Subjective Doing well today. No major concerns. No recurrence of chest pain. Reports no fevers/chills, chest pain, shortness of breath, abdominal pain, nausea, or vomiting. Physical Exam Constitutional: WD/WN, vitals as above Eyes: EOM intact bilaterally; no conjunctival abnormality ENMT: external ear and nose normal, oropharynx normal Neck: trachea midline, no thyromegaly normal visual inspection Respiratory: normal respiratory effort, lungs clear to auscultation no respiratory distress Cardiovascular: RRR, no murmur, no edema Gastrointestinal (Abdomen): Inspection/Auscultation: abdomen normal to inspection; abdomen not distended Musculoskeletal: no cyanosis or clubbing, extremities motor strength 5/5 Skin: no rashes, warm and dry Neurologic: moves all extremities and awake Psychiatric: Orientation: alert, oriented to person and cooperative Results & Data Results & Data ([facility]) Vital Signs (Past 12 Hours) Vital Signs Temp Pulse Pulse Resp BP Pulse Ox 09/22/20 15:19 36.8 C 60 19 114/65 97 09/22/20 12:00 36.9 C 59 L 18 116/75 95 09/22/20 08:00 57 L 09/22/20 07:45 37.0 C 61 18 144/65 H 98 09/22/20 03:53 36.5 C 53 L 16 157/76 H 98 PG Care Time/CCT Total # of Minutes Spent Total Time Spent with Patient: Total time spent is greater than 50% in coordination of care (as documented) at patient's floor/unit and/or counseling patient: Coding Level of Care Code 13179 Subseq Hosp Care Lvl 2 Diagnoses NSTEMI, initial episode of care I21.4 CAD (coronary artery disease) I25.10 Elevated BP without diagnosis of hypertension R03.0 Tobacco use Z72.0 DVT prophylaxis Z29.9
--- NOTE | 2020-09-22 15:53 | Electrocardiogram Report ---
Test Reason : Blood Pressure : / mmHG Vent. Rate : 045 BPM Atrial Rate : 045 BPM P-R Int : 158 ms QRS Dur : 088 ms QT Int : 492 ms P-R-T Axes : 056 021 132 degrees QTc Int : 425 ms Sinus bradycardia Abnormal ECG When compared with ECG of 21-SEP-2020 11:17, Premature ventricular complexes are no longer Present T wave inversion no longer evident in Inferior leads Confirmed by Lucian Desai ([id number]) on 09/22/2020 3:52:44 PM Referred By: REFERRED SELF Confirmed By:Lucian Desai
[2020-09-22] MEDS: ACETAMINOPHEN 325 MG TAB PO PRN (16:13)
[2020-09-22] MEDS: CALCIUM CARBONATE 500 MG CHEWABLE TAB PO PRN (20:55)
[2020-09-22] MEDS ORDERED: FAMOTIDINE 20 MG TAB PO ONE (23:32)
[2020-09-22] MEDS ORDERED: SENNA 8.6 MG TAB PO STA (23:32)
[2020-09-23 00:53] LABS: Magnesium 2.2 mg/dl (1.8-2.4); Phosphorus 4.4 mg/dl (2.5-4.9); Troponin I 9.54 ng/ml (0-0.045)
[2020-09-23] MEDS ORDERED: MoRPHine SULFATE 2 MG/ML CARP IV PRN (01:09)
--- NOTE | 2020-09-23 01:12 | Communication Note ---
Date of Service: September 23, 2020 Patient complained of 2/10 GERD-like pain, similar to her presenting symptoms to ER several days ago, however significantly reduced (reported it was a 10 in ER). States she wont take the nitro due to it giving her headache. Did order repeat troponin which is further elevated to 9. BP 160s systolic. Advised patient to take morphine dose and also ordered one time hydralazine, to overall decrease preload/afterload and help with discomfort. Repeat troponin later this AM. EKG without any changes as compared to this morning. Bradycardic to 50s, but has been for last 2 days. Also ordered K Riders to optimize K of 3.8.
[2020-09-23] MEDS: POTASSIUM CHLORIDE / WTR 10 MEQ/100 ML PLCT IV SCH ×2 (01:54→02:21)
[2020-09-23] MEDS ORDERED: POTASSIUM CHLORIDE 10 MEQ TABCR PO STA ×2 (02:11)
[2020-09-23 07:18] LABS: Hematocrit (blood only) 44.1 % (37-47); Hemoglobin 14.9 g/dL (12.0-16.0); Mean Corpuscular Hemoglobin 29.9 pg (25-34); Mean Corpuscular Hgb Conc 33.8 g/dL (32-36); Mean Corpuscular Volume 88.4 fL (80-100); Mean Platelet Volume 10.4 fL (7.4-10.4); Platelet Count 394 K/uL (130-400); RDW Standard Deviation 45.5 fL (36.4-46.3); Red Blood Count 4.99 M/uL (4.2-5.4)
[2020-09-23 07:46] LABS: BUN Creatinine Ratio 12.7 (10-20); Calcium 9.4 mg/dl (8.5-10.1); Creatinine Clr Calc Pharmacy 67.6 ml/min; Est GFR (African American) 90.1; Est GFR (Non-African American) 77.7; Potassium 4.1 mmol/L (3.5-5.1)
[2020-09-23 07:55] LABS: Troponin I 10.6 ng/ml (0-0.045)
[2020-09-23] MEDS: METOPROLOL TARTRATE 25 MG TAB PO SCH ×2 (08:21→18:47)
[2020-09-23] MEDS: lisinopril 10 MG TAB PO SCH (08:21)
[2020-09-23] MEDS: TICAGRELOR 90 MG TAB PO SCH ×2 (08:21→18:47)
[2020-09-23] MEDS: ASPIRIN 81 MG ECTAB PO SCH (08:21)
[2020-09-23] MEDS: ATORVASTATIN 40 MG TAB PO SCH (08:21)
[2020-09-23] MEDS ORDERED: NITROGLYCERIN 2% OINTMENT 30GM TUBE EXT SCH (09:00)
[2020-09-23] MEDS ORDERED: DOCUSATE SODIUM/SENNA 50/8.6MG TAB PO SCH (09:00)
[2020-09-23] MEDS ORDERED: fentaNYL citrate 100 MCG/2 ML VIAL ONE (11:42)
[2020-09-23] MEDS ORDERED: niCARdipine HCL INJ 2.5 MG/ML 10 ML AMP ONE (11:42)
[2020-09-23] MEDS ORDERED: HEPARIN (PORCINE) 1000 UNIT/ML 10 ML (CATH LAB USE ONLY) ONE (11:42)
[2020-09-23] MEDS ORDERED: NITROGLYCERIN/D5W 100MCG/ML 20ML SYR ONE (11:42)
[2020-09-23] MEDS ORDERED: MIDAZOLAM HCL 1 MG/ML 2ML VIAL ONE (11:42)
--- NOTE | 2020-09-23 12:11 | Pre Anesthesia Assessment ---
Date of Service September 23, 2020 Pre Sedation Assessment Vital Signs Temp Pulse Pulse Resp BP Pulse Ox 09/23/20 11:46 98.2 F 76 18 143/72 H 96 09/23/20 11:41 63 18 141/74 H 98 09/23/20 08:00 75 09/23/20 07:45 97.7 F 60 18 159/76 H 96 09/23/20 04:05 97.9 F 57 L 18 166/75 H 98 09/23/20 01:00 52 L 09/22/20 23:15 97.5 F L 49 L 18 159/80 H 99 09/22/20 19:52 98.2 F 60 19 119/62 98 09/22/20 16:48 60 09/22/20 15:19 98.2 F 60 19 114/65 97 Cardiovascular RRR, no murmur, no edema Respiratory normal respiratory effort, lungs clear to auscultation Pre-Sedation Airway Assessment Smoking Status: Current every day smoker Hx Sleep Apnea: No Hx Difficult Intubation: No Short, Thick Neck: No Thyromental Distance: > or= 3.5 Finger Breadths Oral Cavity: + WNL Mallampati Class: IV ASA: ASA3 NPO Status Date of Last Intake of Fluids: 09/23/20 Time of Last Intake of Fluids: 08:00 Date of Last Intake of Solid Food: 09/23/20 Time of Last Intake of Solid Foods: 08:00 Procedure Planning Contraindications for Sedation: none Current Medications Reviewed: Yes Notes The planned sedation has been discussed with the patient. Informed Consent was obtained. I have identified the patient, determined the appropriateness of sedation and have assessed the patient immediately prior to the procedure. All medicine(s) and interventions are by my order.
[2020-09-23] MEDS ORDERED: SODIUM CHLORIDE 0.9% 1000ML 1,000 ML IV SCH (12:45)
--- NOTE | 2020-09-23 12:45 | Post Anesthesia Assessment ---
Date of Service September 23, 2020 Post Sedation Assessment Vital Signs Temp Pulse Pulse Resp BP Pulse Ox 09/23/20 11:46 98.2 F 76 18 143/72 H 96 09/23/20 11:41 63 18 141/74 H 98 09/23/20 08:00 75 09/23/20 07:45 97.7 F 60 18 159/76 H 96 09/23/20 04:05 97.9 F 57 L 18 166/75 H 98 09/23/20 01:00 52 L 09/22/20 23:15 97.5 F L 49 L 18 159/80 H 99 09/22/20 19:52 98.2 F 60 19 119/62 98 09/22/20 16:48 60 09/22/20 15:19 98.2 F 60 19 114/65 97 Recovery Score Activity: Moves 4 extremities Respiration: Deep Breath/Cough Circulation: +/-20% PreAnes Value Consciousness: Fully Awake Oxygen Saturation: O2 needed for >90% Discharge Sedation Level of Care: Fast Track Phase II Post Sedation Plan On clinical assessment, the patient appears to have tolerated the sedation without complications. Patient is recovering as anticipated. Patient will continue to be monitored by nursing and may be discharged when sedation discharge criteria are met per below protocol. Upon Completions of procedure up to 15 minutes continue every 5 minute vital signs and the P.A.R. score; then discharge to a Phase I or Fast Track to Phase II per the following guidelines: * Discharge Patient to appropriate Phase II area if PAR is 8 or greater or return to pre- procedure baseline. The post - procedure orders will be as directed. * If PAR score is less than 8 or not return to pre-procedure baseline then patient will follow Phase I monitoring till PAR is reached for Phase II. The Phase I may be done in procedure room or may call to secure a Phase I area. * If naloxone or flumazenil are used for reversal, hold in Phase I for continued monitoring from when last reversal dose was given for a minimum of 60 minutes or longer pending the nurse and/or physician discretion of patient condition before discharge to Phase II. Please call the Sedation Physician to re-evaluate and complete post-note for discharge to Phase II area. Do NOT discharge from procedure sedation or Phase 1 until post- sedation evaluation note is complete by procedure /sedation MD Sedation Discharge Instructions to be given to the patient at discharge to home.
--- NOTE | 2020-09-23 12:53 | Post Operative Brief Note ---
Cardiology Brief Post Op Date of Surgery September 23, 2020 Pre & Post Diagnosis CAD Procedure -- Load Builder Efren Holloway MD Risk Tech Nikolas Estimated Blood Loss 10 Findings See Below Widely patent LAD stents. ABDIAS 3 flow in D2. - Small 3rd septal absent Overall findings unchanged from post-procedure on 09/21. - continue DAPT - consider meds for reflux, pericarditis. Fluids -- Specimens Specimen Description: -- Drains Other Anesthesia Type RN Sedation Complications none Disposition Accompanied Patient To Recovery: No Disposition: PCU Overlapping Procedure I was present for: the critical portions of procedure. I was immediately available: during the entire case. Back up surgeon: was not required during procedure.
[2020-09-23] MEDS: ACETAMINOPHEN 325 MG TAB PO PRN (12:55)
[2020-09-23] MEDS ORDERED: PANTOprazole 40 MG TAB PO SCH (13:30)
[2020-09-23] MEDS: COLCHICINE 0.6 MG TAB PO SCH ×2 (14:06→18:47)
--- NOTE | 2020-09-23 15:02 | Cardiac Catheterization ---
[facility] Data: Front Loader Residential Driver Cardiac Status Clinical evaluation leading to the procedure CAD Presenation: Non STEMI Anginal Classification: CCS IV Heart Failure: No Cardiogenic Shock within 24 Hours: No Cardiac Arrest within 24 Hours: No Imaging Studies Past 6 Months: Yes Stress Studies Past 6 Months: No Diagnostic Physicians Name: Efren Holloway MD Status: Elective Closure Device Percutaneous Entry Location: Radial Closure Device: Radial Band Recommendations: PCI without planned CABG Intraprocedure Events Significant Disection: No Perforation: No Cardiac Cath Procedure Full Procedure Date September 23, 2020 Pre-Procedure Diagnosis Pre-Procedure Diagnosis: CAD AUC Score AUC Score: 7 Post-Procedure Diagnosis Post-Procedure Diagnosis: Mild CAD and Normal Intracardiac Pressures Procedure(s) Performed Procedure(s) Performed: Coronary Angiography and Left Heart Cath Assistant Professor Of Forestry Efren Holloway MD Pharmaceutical Sales(s) Nikolas Estimated Blood Loss Estimated Blood Loss: 10 Medication(s) Medication(s): Fentanyl, Heparin, Lidocaine 1%, Nicardipine, Nitroglycerin and Versed Summary of Findings Indication: Patient post PCI for NSTEMI 2 days ago with 2 ZULEIMA to proximal mid LAD. Has had intermittent chest symptoms since that time with rising troponin up to 10.6. Echo with no regional wall motion abnormalities. ECG with deep anterior T wave inversions. Access: 6 Fr right radial artery Catheters: Deford, JL 3.5 Findings: LM -large caliber, no significant disease LAD -large caliber, proximal to mid LAD stents widely patent with no significant restenosis. 30% latemid disease. Distal vessel without significant disease and wraps around apex. Jailed small D2 with ABDIAS-3 flow and moderate residual ostial stenosis (unchanged from 2/2). Small third septal occluded. Circumflex -medium caliber, 40% mid segment disease. 30 to 40% diffuse distal disease extending into proximal OM 2. RCA -large caliber, dominant, 20 to 30% mid segment disease. Distal luminal regularities. 40% proximal right PDA. Large right PLB without significant disease. LVEDP - 10 Arterial Closure: TR band Summary: 1. Widely patent proximal to mid LAD stents. -Small jailed D2 with moderate ostial stenosis and ABDIAS-3 flow. Occluded very small third septal. 2. Unchanged mild to moderate circumflex, PDA disease. 3. Normal intracardiac filling pressure Recommendations: Patient's stents are wide open with no other new significant CAD. Suspect some of patient's symptoms, troponin elevation may have been secondary to occlusion of small third septal. No additional intervention required. Continue DAPT with aspirin, ticagrelor. Recommend trial of PPI We will also add colchicine for questionable pericarditis and long-term ACS benefits. Hemodynamics Rest Ao:: 124/65/93 Final Ao: 128/64/89 LV: 130/10 Recommendations Recommendations: PCI without planned CABG Specimens Specimens: None Radiation Exposure (mGy) 247 Contrast (mls) 40 Fluids (cc crystalloids) Fluids (cc crystalloids): 70 Drains Drains: None Anesthesia Moderate Procedural Complication(s) None Disposition PCU I attest to the content of the Intraoperative Record and any orders documented therein. Any exceptions are noted below. [facility] Card Cath Procedure Codes Cardiac Catheterization Procedure 1: Cardiovascular Cath Procedures: 68419 Coronaries and LHC (+/-LV) Moderate Sedation Procedure 1: Sedation/Anesthesia: 63323 Mod Sedation by the same physician;Init15 Min Child Age 5 & Up PG Care Time/CCT Total # of Minutes Spent Total Time Spent with Patient: Total time spent is greater than 50% in coordination of care (as documented) at patient's floor/unit and/or counseling patient:
--- NOTE | 2020-09-23 15:45 | Hospitalist Progress Note ---
Date of Service September 23, 2020 Assessment & Plan (1) NSTEMI, initial episode of care: Troponin still rising, though slowing significantly. - Continue DAPT: ASA/ticagrelor - Continue beta-michelle and ACEi - Continue statin - Returned to labor delivery rn on 09/23 for continued symptoms and increasing troponin. No further intervention needed, but had some jailed collaterals which may be the cause of the her symptoms and troponin. Started colchicine and PPI. (2) CAD (coronary artery disease): Cath on 09/21/2020. Two overlapping stents in the mid-LAD. Some mild/moderate non-culprit CAD (30 to 40% mid, distal circumflex disease extending into proximal OM 2 & 40% proximal right PDA). - As above (3) Elevated BP without diagnosis of hypertension: BP today is 130/70. - Meds as above (4) Tobacco use: - Encourage smoking cessation. (5) DVT prophylaxis: SCDs - Low DVT risk per admission calculator Admission and Anticipated Discharge Date Admission Date: September 21, 2020 Subjective Still having a lot of belching and gas which she attributes to constipation. Reports no fevers/chills, chest pain, shortness of breath, abdominal pain, nausea, or vomiting. Physical Exam Constitutional: WD/WN, vitals as above Eyes: EOM intact bilaterally; no conjunctival abnormality ENMT: external ear and nose normal, oropharynx normal Neck: trachea midline, no thyromegaly normal visual inspection Respiratory: normal respiratory effort, lungs clear to auscultation no respiratory distress Cardiovascular: RRR, no murmur, no edema Gastrointestinal (Abdomen): Inspection/Auscultation: abdomen normal to inspection; abdomen not distended Musculoskeletal: no cyanosis or clubbing, extremities motor strength 5/5 Skin: no rashes, warm and dry Neurologic: moves all extremities and awake Psychiatric: Orientation: alert, oriented to person and cooperative Results & Data Results & Data ([facility]) Vital Signs (Past 12 Hours) Vital Signs Temp Pulse Pulse Resp BP Pulse Ox 09/23/20 14:45 65 16 127/71 99 09/23/20 14:01 52 L 16 126/71 97 09/23/20 13:51 36.5 C 62 16 138/71 98 09/23/20 13:31 55 L 16 124/69 98 09/23/20 13:16 36.6 C 52 L 16 143/66 H 98 09/23/20 13:13 56 L 09/23/20 12:50 59 L 18 125/69 97 09/23/20 11:46 36.8 C 76 18 143/72 H 96 09/23/20 11:41 63 18 141/74 H 98 09/23/20 08:00 75 09/23/20 07:45 36.5 C 60 18 159/76 H 96 09/23/20 04:05 36.6 C 57 L 18 166/75 H 98 PG Care Time/CCT Total # of Minutes Spent Total Time Spent with Patient: Total time spent is greater than 50% in coordination of care (as documented) at patient's floor/unit and/or counseling patient: Coding Level of Care Code 63494 Subseq Hosp Care Lvl 2 Diagnoses NSTEMI, initial episode of care I21.4 CAD (coronary artery disease) I25.10 Elevated BP without diagnosis of hypertension R03.0 Tobacco use Z72.0 DVT prophylaxis Z29.9
--- NOTE | 2020-09-23 19:05 | Discharge Summary ---
Date of Service September 23, 2020 Admission HPI Per Admitting Provider Mrs. Horner is a 60-year-old female with a history of Tobacco Use x 42 years (up to 2 ppd, now smokes 1/2 ppd), presumed Dyslipidemia, and Elevated BP (without diagnosis of hypertension) who presents acutely to [facility] ER today complaining of Burning Chest Pain which goes from her lower anterior chest up to her suprasternal notch, Ischemic EKG Changes, and an Elevated Troponin I Level. Patient was in her usual state of health. On Sunday, she was moving hay mely -- and after she moved 7 or 8 hay mely she had severe chest burning as described above, she sat down and rested, and the discomfort lasted for about 5- 10 minutes. This occurred again on Sunday when she was shoveling out her horse stalls. Again, she sat down and rested and the pain lasted for 5-10 minutes. Over night on Sunday night into Sunday morning while sleeping she had another episode of burning chest pain that woke her from sleep and lasted about 10 minutes. This morning she had some mild chest discomfort while taking a shower and when trying to get her [employer] to come in out of the snow. She has not had any prolonged episodes of burning chest discomfort, and she only had that 1 episode that occurred at rest. She denies any radiation of the discomfort. She denies any associated symptoms. She specifically denies any associated nausea, vomiting, diaphoresis, or dyspnea. She does get hot flashes related to menopause, but these are unassociated with this chest discomfort. Specialty Data Cardiology Cardiac catheterization/PCI 09/21/2020: Acute 90% mid LAD involving bifurcation with small D2 with 90% ostial stenosis. 40% mid, distal circumflex extending into proximal OM 2, 40% proximal right PDA. PCI of proximal to mid LAD with 2 overlapping drug-eluting stents (3.0 x 30, 2.5 x 12 mm Mack; postdilated with 3.5 NC with PTCA of ostium of jailed D2 with 2.0 balloon) Echo 09/22/2020: Mild LVH, EF 60 to 65%, no valvular pathology. Trace pericardial effusion Cardiac catheterization 09/23/2020: Widely patent proximal mid LAD stents, moderate residual ostial stenosis and jailed D2. Occluded very small third s eptal. Unchanged circumflex, PDA disease Discharge Data Consultations 09/21/20 13:58 Consult Cardiac Catheterization Stat ED Decision to Admit Stat 09/21/20 18:00 Consult Cardiac Rehabilitation Routine 09/22/20 07:00 Consult Cardiac Rehabilitation Routine Procedures Performed Operation Date: 09/21/20 14:55 Actual Procedures p Cath, Left with Cors and Vent - Leonardo Holloway MD s IVUS Coronary Single Vessel - Leonardo Holloway MD s Drug Eluting Stent SGl Vessel - Leonardo Holloway MD s Cineradiography w/Routine Exam - Leonardo Holloway MD Operation Date: 09/23/20 11:45 Actual Procedures p Cath, Left with Cors and Vent - Leonardo Holloway MD s Cineradiography w/Routine Exam - Leonardo Holloway MD Hospital Course (1) CAD (coronary artery disease): Post PCI with DESx2 to LAD 2. Preserved LV function 3. Dyslipidemia 4. Tobacco abuse 5. Sinus bradycardia 6. Residual chest discomfort 7. Trace pericardial effusion In the setting of high risk NSTEMI patient was taken urgently from ED for cardiac catheterization which showed an acute 90% mid LAD lesion involving b ifurcation with small D2. Received 2 overlapping drug-eluting stents from proximal to mid LAD with angioplasty of jailed ostium of D2. Post procedure admitted to telemetry. Continue to have residual chest discomfort which described as heartburn. Repeat ECGs on hospital day 2 showed persistent deep anterior T wave inversions but no escalations. Echocardiogram showed preserved LV function with no regional wall motion abnormalities. Her troponin continued to rise eventually peaking at 10.6 on hospital day 3. On the morning of hospital day 3 she continued to endorse mild intermittent heartburn symptoms and with rising troponin and underwent repeat cardiac catheterization which showed unchanged, widely patent LAD stents and no new CAD. Persistent chest discomfort thought potentially secondary to a combination of occlusion of a small third septal, possible pericarditis in the setting of trace pericardial effusion and reflux. Patient started on PPI and colchicine (possible transition to low-dose as an outpatient for ACS). By the evening of hospital day 3 patient was feeling well with no apparent radial artery access site complications. She was discharged home on DAPT with aspirin and ticagrelor. Follow-up with cardiology in 1 to 2 weeks. Discharge Instructions Home Medications aspirin 81 mg PO QAM #30 tab 09/23/20 [Rx] atorvastatin 80 mg PO QAM #30 tab 09/23/20 [Rx] colchicine [Colcrys] 0.6 mg PO BID #60 tab 09/23/20 [Rx] lisinopril 10 mg PO QAM #30 tab 09/23/20 [Rx] metoprolol succinate [Toprol XL] 25 mg PO DAILY #30 tab 09/23/20 [Rx] nitroglycerin [Nitrostat] 0.4 mg SUBLINGUAL PRN PRN #20 tab 09/23/20 [Rx] pantoprazole 40 mg PO QAM #30 tab 09/23/20 [Rx] ticagrelor [Brilinta] 90 mg PO BID #60 tab 09/23/20 [Rx] Coding Level of Care Code D/C Day Management >30 mins Diagnoses CAD (coronary artery disease) I25.10
--- NOTE | 2020-09-24 05:46 | Electrocardiogram Report ---
Test Reason : Blood Pressure : / mmHG Vent. Rate : 047 BPM Atrial Rate : 047 BPM P-R Int : 152 ms QRS Dur : 078 ms QT Int : 480 ms P-R-T Axes : 053 070 123 degrees QTc Int : 424 ms Sinus bradycardia T wave abnormality, consider anterior ischemia Abnormal ECG When compared with ECG of 22-SEP-2020 06:57, No significant change was found Confirmed by Donnell Nash ([id number]) on 09/24/2020 5:46:28 AM Referred By: REFERRED SELF Confirmed By:Donnell Nash
--- NOTE | 2020-09-24 06:00 | Electrocardiogram Report ---
Test Reason : Blood Pressure : / mmHG Vent. Rate : 062 BPM Atrial Rate : 062 BPM P-R Int : 146 ms QRS Dur : 082 ms QT Int : 424 ms P-R-T Axes : 062 056 113 degrees QTc Int : 430 ms Normal sinus rhythm Abnormal ECG When compared with ECG of 22-SEP-2020 23:43, No significant change was found Confirmed by Donnell Nash ([id number]) on 09/24/2020 5:59:45 AM Referred By: REFERRED SELF Confirmed By:Donnell Nash
== END 2020-09-23 19:35 | disposition home or self-care (01) | DRG 282 ==
LOC: ED 11:09 → CC 15:10 → 2S 15:42 → SUATTDRO 15:42